=== PATIENT | female | born 1940 | race Caucasian/White ===

== ENCOUNTER 2017-05-13 10:38 | Emergency (ER) | payer OTHER ==
[2017-05-13 10:53] VITALS: BMI 45.3
[2017-05-13] MEDS ORDERED: Sodium Chloride 0.9% 500 ML IV STA (11:34)
[2017-05-13] MEDS ORDERED: Sodium Chloride 0.9% 500 ML IV ONE (12:09)
[2017-05-13 12:38] VITALS: RESP 18
--- NOTE | 2017-05-13 12:38 | RAD ---
PROCEDURE: CHEST RADIOGRAPH, 1 VIEW HISTORY: LE edema COMPARISON: None available. FINDINGS: LUNGS: Left midlung atelectasis. Mild venous congestion. PLEURA: No pneumothorax or pleural fluid seen. CARDIOVASCULAR: Calcification at the aortic knob. OSSEOUS STRUCTURES: Degenerative changes in the spine and shoulders. VISUALIZED UPPER ABDOMEN: Normal. OTHER FINDINGS: None. IMPRESSION: Left midlung atelectasis. Mild venous congestion.
[2017-05-13 13:04] LABS: BASO % 0.4 % (0.0-2.0); EOS # 0.1 K/uL (0.0-0.7); EOS % 2.4 % (0.0-4.0); HEMOGLOBIN 13.5 g/dL (11.0-16.0); LYMPH # 1.5 K/uL (1.0-4.3); LYMPH % 27.9 % (20.0-40.0); MEAN CELL VOLUME 79.3 fL (81.0-99.0); MEAN CORPUSCULAR HEMOGLOBIN 25.6 pg (27.0-31.0); MEAN CORPUSCULAR HGB CONC 32.3 g/dL (33.0-37.0); MEAN PLATELET VOLUME 7.9 fL (7.2-11.7); MONO # 0.3 K/uL (0.0-0.8); MONO % 6.5 % (0.0-10.0); NEUT # 3.4 K/uL (1.8-7.0); NEUT % 62.8 % (50.0-75.0); RBC 5.25 Mil/uL (3.80-5.20); RED CELL DISTRIBUTION WIDTH 17.9 % (11.5-14.5); WHITE BLOOD COUNT 5.3 K/uL (4.8-10.8)
[2017-05-13 13:25] LABS: GFR AFRICAN-AMERICAN > 60; GFR NON-AFRICAN AMERICAN > 60
[2017-05-13 13:26] LABS: ALB/GLOB RATIO 1.1 (1.0-2.1); ALT/SGPT 23 U/L (9-52); AST/SGOT 22 U/L (14-36); BLOOD UREA NITROGEN 13 mg/dL (7-17); CALCIUM 9.2 mg/dl (8.6-10.4)
[2017-05-13 14:50] VITALS: O2SAT 98
--- NOTE | 2017-05-13 15:14 | C.PDOC ---
History Of Present Illness Marilu Newton, a 76 year old female, presents to the ED complaining of a right ankle and right foot injury. The patient states that 3 months ago she had an acute fracture for which she had surgery and is currently doing therapy. She states that for the last 2 weeks she noticed erythema on her right ankle and foot but did not show anyone until yesterday. The patient states that her PMD told her to come into the ED for evaluation. Of note: Patient also states that her hip and back are are still painful but this is not new. PMD: Mesfin Lema Time Seen by Provider: 05/13/17 10:59 Chief Complaint (Nursing): Lower Extremity Problem/Injury History Per: Patient History/Exam Limitations: no limitations Onset/Duration Of Symptoms: Days (x14 days) Current Symptoms Are (Timing): Still Present Past Medical History Reviewed: Historical Data, Nursing Documentation, Vital Signs Vital Signs: Last Vital Signs Temp 98.1 F 05/13/17 18:15 Pulse 84 05/13/17 18:15 Resp 18 05/13/17 18:15 BP 160/60 H 05/13/17 18:15 Pulse Ox 98 05/13/17 18:15 - Medical History PMH: Anxiety, Arthritis, HTN, Hypothyroidism, Rheumatoid Arthritis Denies: HIV, Chronic Kidney Disease Family History: States: Unknown Family Hx - Social History Hx Tobacco Use: No Hx Alcohol Use: No Hx Substance Use: No - Immunization History Hx Tetanus Toxoid Vaccination: No Hx Influenza Vaccination: No Hx Pneumococcal Vaccination: No Review Of Systems Except As Marked, All Systems Reviewed And Found Negative. Musculoskeletal: Positive for: Other (Erythematous right ankle and foot.) Physical Exam - Physical Exam Appears: Well, Non-toxic, No Acute Distress Skin: Normal Color, Warm, Dry Head: Atraumatic, Normacephalic, No Tenderness Eye(s): bilateral: Normal Inspection, PERRL, EOMI Nose: Normal Oral Mucosa: Moist Tongue: Normal Appearing Lips: Normal Appearing Teeth: Normal Dentition Gingiva: Normal Appearing Throat: Normal Neck: Normal, Normal ROM, Supple Chest: No Deformity, No Tenderness Cardiovascular: Rhythm Regular Respiratory: Normal Breath Sounds, No Wheezing Gastrointestinal/Abdominal: Normal Exam, Bowel Sounds, Soft, No Tenderness, No Guarding, No Rebound Back: Normal Inspection, No CVA Tenderness Extremity: Normal ROM (Full ROM), Tenderness (Diffuse tenderness in affected area.), No Calf Tenderness, Deformity (rheumatoid deformed hands bilaterally), Swelling (Mild swelling and erythema no open sores.), Other (Hip not swollen,no erythema; no drainage; No fluctuation) Neurological/Psych: Oriented x3, Normal Speech, Normal Cognition ED Course And Treatment - Laboratory Results Result Diagrams: 05/13/17 13:01 05/13/17 13:01 O2 Sat by Pulse Oximetry: 98 (RA) Pulse Ox Interpretation: Normal Medical Decision Making Medical Decision Makin Initial Impression: 76 year old female presenting with erythematous right ankle and right foot Initial Plan: * Complete metabolic panel * CBC * CXR * Keflex * Blood culture * US VASCLAB * Reevaluation 1236 Chest One View Impression: Left midlung atelectasis. Mild venous congestion Duplex No evidence of DVT Blood work performed: shows no white count. Dr Veliz examined at bedside and believes pt can be discharged home on antibiotics. Patient agreed to discharge plan. Disposition Counseled Patient/Family Regarding: Diagnosis - Disposition Disposition: HOME/ ROUTINE Disposition Time: 15:14 Condition: STABLE Additional Instructions: Follow up with your PMD within 1-2 days. Return to ED if feel worse. Prescriptions: Cephalexin [cephalexin] 500 mg PO Q6 #40 cap Instructions: Cellulitis (ED) Forms: [facility] (Lao) Print Language: CITIZEN [place] - Clinical Impression Clinical Impression: Cellulitis - Scribe Statement The provider has reviewed the documentation as recorded by the Delilah Navarro All medical record entries made by the Vonnieiberic were at my direction and personally dictated by me. I have reviewed the chart and agree that the record accurately reflects my personal performance of the history, physical exam, medical decision making, and the department course for this patient. I have also personally directed, reviewed, and agree with the discharge instructions and disposition.
[2017-05-13 18:16] VITALS: BP 160/60; PULSE 84; TEMP 98.1
--- NOTE | 2017-05-14 12:18 | VASCLAB ---
PROCEDURE: Right Lower Extremity Venous Duplex Exam. HISTORY: LE swelling, r/o DVT PRIORS: None. TECHNIQUE: Right common femoral, femoral, popliteal and posterior tibial, peroneal and great saphenous veins were evaluated. Flow was assessed with color Doppler, compressibility, assessment of phasic flow and augmentation response. Report prepared by RIVAS Frederick FINDINGS: RIGHT: 1. Common Femoral Vein: 1.1. Compressibility - Fully compressible: Thrombus - None: Flow - Phasic: Augmentation -Normal: Reflux - None. 2. Femoral Vein: 2.1. Compressibility - Fully compressible: Thrombus - None: Flow - Phasic: Augmentation -Normal: Reflux - None. 3. Popliteal Vein: 3.1. Compressibility - Fully compressible: Thrombus - None: Flow - Phasic: Augmentation -Normal: Reflux - None. 4. Posterior Tibial Vein: 4.1. Compressibility - Fully compressible: Thrombus - None: Flow - flow demonstrated in one of the paired veins.: Augmentation -Normal: Reflux - None. 5. Peroneal Vein: 5.1. Compressibility - Fully compressible: Thrombus - None: Flow - Phasic: Augmentation -Normal: Reflux - None. 6. Great Saphenous Vein: 6.1. Compressibility - Fully compressible: Thrombus -None: Flow - Phasic: Augmentation - Normal: Reflux - None. OTHER FINDINGS: IMPRESSION: No evidence of deep or superficial vein thrombosis of the right lower extremity with excellent venous flow. Normal valve function noted of the right side. Color Doppler interrogation demonstrated flow in one of the paired veins. This could be due to technique. Repeat evaluation can be obtained if clinically relevant. Normal venous flow noted in the left common femoral vein.
== END 2017-05-13 18:15 | disposition home or self-care (01) ==
LOC: C.ER 10:38
DX: L03.115 Cellulitis of right lower limb (principal)
CPT/HCPCS: 71010; 80053; 85025; 87040; 93971; 96360; 99285; J7040